=== PATIENT | female | born 1950 | race Caucasian/White ===

== ENCOUNTER 2025-04-06 10:23 | Outpatient (CLI) | payer MEDICARE, SELFPAY | END 2025-04-06 10:24 | disposition home or self-care (01) | LOC: NFLDREF 04-12 08:23 | PROVIDERS: Visit Provider Physician Assistant Surgical | DX: R35.1 Nocturia (principal) | CPT/HCPCS: 87086 ==

== ENCOUNTER 2025-05-02 14:10 | Outpatient (CLI) | payer MEDICARE, SELFPAY | END 2025-05-02 14:11 | disposition home or self-care (01) | PROVIDERS: PCP Family Medicine; Visit Provider Family Medicine | DX: E78.5 Hyperlipidemia, unspecified (principal); M85.80 Other specified disorders of bone density and structure, unspecified site; R32 Unspecified urinary incontinence; R35.0 Frequency of micturition; R73.01 Impaired fasting glucose | CPT/HCPCS: 80053; 80061; 82306; 87086 ==

== ENCOUNTER 2025-05-08 13:47 | Outpatient (CLI) | payer MEDICARE, SELFPAY ==
--- NOTE | 2025-05-08 14:00 | CRLHL7_ITS ---
For Patients: As a result of the Century Cures Act, medical imaging exams and procedure reports are released immediately into your electronic medical record. You may view this report before your referring provider. If you have questions, please contact your health care provider. INDICATION: Frequency of micturition COMPARISON: None. TECHNIQUE: 2D robles-scale and color Doppler images were acquired of the pelvis using a transabdominal and transvaginal approach. Transvaginal imaging performed to better visualize the endometrial stripe and ovaries. FINDINGS: Uterus measures 6.4 cm in length by 2.6 cm in AP diameter by 4.0 cm in transverse dimension. Endometrial thickness 6 millimeters. Ovaries are not visualized due to the presence of bowel gas in the adnexa in addition to a heterogeneous solid circumscribed mass in the left adnexa which measures 8.5 x 6.7 x 4.4 cm. IMPRESSION: Indeterminate solid left adnexal mass measures 8.5 x 6.7 x 4.4 cm. Pelvic MRI recommended. Dictated by Vishal Brewster MD @ 05/08/2025 8:36:24 PM (Electronically Signed)
== END 2025-05-08 13:48 | disposition home or self-care (01) ==
LOC: US 13:48
PROVIDERS: PCP Family Medicine; Visit Provider Family Medicine
DX: R35.0 Frequency of micturition (principal); R19.00 Intra-abdominal and pelvic swelling, mass and lump, unspecified site; R10.20 Pelvic and perineal pain unspecified side
CPT/HCPCS: 76830; 76856

== ENCOUNTER 2025-05-18 15:13 | Outpatient (CLI) | payer MEDICARE, SELFPAY ==
--- NOTE | 2025-05-18 15:30 | CRLHL7_ITS ---
For Patients: As a result of the Century Cures Act, medical imaging exams and procedure reports are released immediately into your electronic medical record. You may view this report before your referring provider. If you have questions, please contact your health care provider. Indication : Left adnexal mass versus pedunculated fibroid. TECHNIQUE: Pelvic MRI with T1, T2, and postcontrast images. Intravenous gadolinium administered. FINDINGS: 9.0 x 8.2 x 5.5 cm mass in the left adnexa shows decreased T2 signal and mild homogeneous enhancement. The mass abuts the left side of the uterus and compresses the left ovary. The uterus is otherwise unremarkable. 7 mm cyst in the right ovary. The right ovary is otherwise unremarkable. No other pelvic masses. No adenopathy. No other bony or soft tissue abnormalities identified. Impression : 1. 9.0 cm mass in the left adnexa abuts the uterus and compresses the left ovary. This may represent a pedunculated uterine fibroid but cannot exclude a left ovarian fibroma/thecoma. Recommend hydraulics teacher consultation. Dictated by Pranav Rice MD @ 05/21/2025 11:56:05 AM (Electronically Signed)
== END 2025-05-18 15:14 | disposition home or self-care (01) ==
PROVIDERS: PCP Family Medicine; Visit Provider Family Medicine
DX: N85.8 Other specified noninflammatory disorders of uterus (principal); R19.00 Intra-abdominal and pelvic swelling, mass and lump, unspecified site
CPT/HCPCS: 72197; A9575

== ENCOUNTER 2025-07-05 14:50 | Outpatient (CLI) | payer MEDICARE, SELFPAY ==
--- NOTE | 2025-07-05 15:00 | CRLHL7_ITS ---
For Patients: As a result of the Century Cures Act, medical imaging exams and procedure reports are released immediately into your electronic medical record. You may view this report before your referring provider. If you have questions, please contact your health care provider. DXA BONE MINERAL DENSITY STUDY Reason for exam: Osteopenia follow-up. Current height (in): 64. Weight (lb): 135. Menopause age: 50. Ethnicity: White. 1. Have you had a previous hip or vertebral fracture? No. 2. Have you had any fractures during your adult life which did not result from significant trauma (e.g., auto accident)? No. 3. Did either of your parents have a hip fracture? No. 4. Do you smoke? No. 5. Have you ever taken Glucocorticoids? No. 6. Do you have rheumatoid arthritis? No. 7. Do you have secondary osteoporosis? No. 8. Do you drink 3 or more alcoholic drinks per day? No. 9. Are you being treated for osteoporosis? No. 10. Have you ever taken any of the following medications: Actonel, Evista, Fosamax, Miacalcin, Reclast, Boniva, Forteo, HRT (i.e. estrogen/hormone therapy), Protelos, Prolia, Vitamin D, Calcium, other ??? please specify. ANSWER: Yes, Fosamax (i.e., raloxifene), Vitamin D, HRT (i.e., estrogen/hormone therapy), and Calcium. 11. Do you have any of the following medical conditions: Anorexia or bulimia, asthma or emphysema, end stage renal disease, hyperparathyroidism, any seizure disorders, cancer, inflammatory bowel diseases, hysterectomy, other ??? please specify. ANSWER: No. 12. What was your maximum height (inches)? 65. 13. Do you perform weight bearing exercise regularly? Yes. 14. Do you regularly consume dairy products? Yes. 15. Do you drink caffeinated beverages? No. 16. At what age did your period start? 13. 17. Are you premenopausal? No. 18. How many full-term pregnancies have you had? 2. 19. Have you ever missed your period for more than 6 months in a row (not including or menopause)? No. TECHNIQUE: Bone mineral density study was performed using the [facility]. FINDINGS: The results of the study expressed as bone mineral density (BMD) are as follows: Lumbar spine L1 to L4: BMD: 0.852 g/cm2. T-score: -1.8. Z-score: 0.7. Neck Left: BMD: 0.602 g/cm2. T-score: -2.2. Z-score: -0.1. Right: BMD: 0.633 g/cm2. T-score: -1.9. Z-score: 0.2. Total Left: BMD: 0.856 g/cm2. T-score: -0.7. Z-score: 1.2. Right: BMD: 0.844 g/cm2. T-score: -0.8. Z-score: 1.1. IMPRESSION: Osteopenia. *Comparison exams done prior to 01/2020 were performed on different unit, [employer]. FRAX 10-year Fracture Risk Major Osteoporotic Fracture: 14% Hip Fracture: 4.1% Reported Risk Factors: [place] () Neck BMD=0.602, BMI=23.2 Vishal Brewsetr M.D. Diagnostic Radiologist [email or web address] JAYNA/[email or web address] cho/Dictated by: Vishal Brewster MD @ 07/06/2025 8:47:00 AM (Electronically Signed)
== END 2025-07-05 14:51 | disposition home or self-care (01) ==
LOC: RAD 14:50
PROVIDERS: PCP Family Medicine; Visit Provider Family Medicine
DX: M85.80 Other specified disorders of bone density and structure, unspecified site (principal); M85.89 Other specified disorders of bone density and structure, multiple sites
CPT/HCPCS: 77080